=== PATIENT | female | born 1940 | race Caucasian/White ===

== ENCOUNTER → 2020-06-19 | Outpatient (CLI) | payer MEDICARE, OTHER ==
[~2020-06-19] MED LIST: DILTIAZEM 24HR360 MG PO; ELIQUIS2.5 MG PO; ENSURE LIQUID237 ML PO; PERCOCET 5-3251 EACH PO; ROPINIROLE HCL1 MG PO; TRAMADOL HCL50 MG PO; TRAZODONE HCL50 MG PO
== END ==
LOC: CT 04-30 07:47 → EXRD 04-30 09:45 → CT 04-30 10:30 → EXRD 04-30 10:30 → CT 04-30 11:00
DX: I87.1 Compression of vein (principal); I73.9 Peripheral vascular disease, unspecified; I65.23 Occlusion and stenosis of bilateral carotid arteries; M71.22 Synovial cyst of popliteal space [Baker], left knee; K76.89 Other specified diseases of liver; I70.0 Atherosclerosis of aorta; N83.202 Unspecified ovarian cyst, left side
CPT/HCPCS: 36415; 82565; 93880; 93925; Q9967

== ENCOUNTER → 2020-07-13 | Outpatient (CLI) | payer MEDICARE, OTHER | LOC: HEART 5 13:23 | DX: I83.899 Varicose veins of unspecified lower extremity with other complications (principal); I87.2 Venous insufficiency (chronic) (peripheral); R60.9 Edema, unspecified; E66.9 Obesity, unspecified | CPT/HCPCS: 93970 ==